=== PATIENT | female | born 1995 | race African-American/Black ===

== ENCOUNTER 2017-01-17 15:12 | Emergency (ER) | payer OTHER ==
[~2017-01-17] VITALS: Ht 152.4 cm; Wt 53.5 kg
[~2017-01-17 15:12] MED LIST: AZITHROMYCIN 2250 MG PO; DELTASONE20 MG PO; DULERA 100 MCG/13 GM INH; VITAFOL-OB+DHA1 EACH PO
[2017-01-17 16:08] LABS: ABSOLUTE NEUTROPHILS 4.7 thou/uL (1.4-8.2); BASOPHILS 0.9 % (0.0-2.0); EOSINOPHILS 5.1 % (0.0-3.0); HEMATOCRIT 34.8 % (37.0-47.0); HEMOGLOBIN 11.8 gm/dL (12.0-15.0); LYMPHOCYTES 28.2 % (24.0-44.0); MCH 30.8 pg (26.0-34.0); MCV 90.7 fL (80.0-100.0); MONOCYTES 6.6 % (1.0-8.0); PLATELET COUNT 235 thou/uL (150-400); POLYS 59.2 % (36.0-66.0); RBC 3.84 mil/uL (4.20-5.00); RDW 13.8 % (10.5-14.5)
[2017-01-17 16:09] LABS: MANUAL DIFF NO
[2017-01-17 17:09] VITALS: BP 110/72
== END 2017-01-17 17:12 | disposition home or self-care (01) ==
LOC: ER 15:12
PROVIDERS: Nurse Practitioner
DX: O26.892 Other specified pregnancy related conditions, second trimester (principal); J45.909 Unspecified asthma, uncomplicated; Z3A.17 17 weeks gestation of pregnancy

== ENCOUNTER 2017-09-15 00:28 | Emergency (ER) | payer OTHER ==
[~2017-09-15] VITALS: Ht 152.4 cm; Wt 50.8 kg
[2017-09-15 00:50] LABS: URINE BILIRUBIN 1+ (Negative); URINE BLOOD 2+ (Negative); URINE CLARITY CLOUDY; URINE COLOR YELLOW; URINE GLUCOSE-RANDOM* NEGATIVE (Negative); URINE KETONES TRACE (Negative); URINE NITRITE-REFLEX NEGATIVE (Negative); URINE PROTEIN (DIPSTICK) 1+ (Negative); URINE SPECIFIC GRAVITY >= 1.030 (1.005-1.035); URINE UROBILINOGEN 0.2 E.U./dl (0.2-1.0)
[2017-09-15 01:05] LABS: ICTOTEST (BILI CONFIRMATORY) Positive (Negative); URINE LEUKOCYTES-REFLEX 2+ (Negative)
[2017-09-15 01:08] LABS: CALCIUM OXALATE 0-3 Few /LPF (None Seen); CASTS None Seen /LPF (None Seen); CRYSTALS None Seen /LPF (None Seen); MUCUS 4-6 Moderate strn/LPF (None Seen); SQUAMOUS >10 Many /LPF (0-3)
[2017-09-15] MEDS ORDERED: KEFLEX500 M1 PO (01:43)
[2017-09-15 02:02] VITALS: BP 112/68
[2017-09-16 14:11] LABS: NEISSERIA GONORRHEA-PCR Negative (Negative)
== END 2017-09-15 02:02 | disposition home or self-care (01) ==
LOC: ER 00:28
PROVIDERS: Emergency Medicine
DX: Z11.3 Encounter for screening for infections with a predominantly sexual mode of transmission (principal); J45.909 Unspecified asthma, uncomplicated

== ENCOUNTER 2018-03-23 21:31 | Emergency (ER) | payer OTHER ==
[~2018-03-23] VITALS: Ht 152.4 cm; Wt 50.8 kg
[~2018-03-23 21:31] MED LIST changes: +KEFLEX500 M1 PO
[2018-03-23 21:53] LABS: URINE BILIRUBIN NEGATIVE (Negative); URINE BLOOD NEGATIVE (Negative); URINE CLARITY CLEAR; URINE COLOR YELLOW; URINE GLUCOSE-RANDOM* NEGATIVE (Negative); URINE KETONES NEGATIVE (Negative); URINE LEUKOCYTES-REFLEX NEGATIVE (Negative); URINE NITRITE-REFLEX NEGATIVE (Negative); URINE PROTEIN (DIPSTICK) NEGATIVE (Negative); URINE SPECIFIC GRAVITY 1.025 (1.005-1.035); URINE UROBILINOGEN 0.2 E.U./dl (0.2-1.0)
[2018-03-23 22:42] VITALS: BP 140/87
== END 2018-03-23 22:43 | disposition home or self-care (01) ==
LOC: ER 21:31
PROVIDERS: Physician Assistant
DX: N89.8 Other specified noninflammatory disorders of vagina (principal); R30.0 Dysuria; J45.909 Unspecified asthma, uncomplicated

== ENCOUNTER 2018-09-19 08:24 | Emergency (ER) | payer OTHER ==
[~2018-09-19] VITALS: Ht 157.5 cm; Wt 46.3 kg
[2018-09-19] MEDS ORDERED: PREDNISONE 20 M20 MG PO (10:51)
[2018-09-19] MEDS ORDERED: ALBUTEROL2.5 MG/31 INH (10:51)
[2018-09-19] MEDS ORDERED: VENTOLIN HFA 1818 GM INH (10:51)
[2018-09-19 10:57] VITALS: BP 125/75
== END 2018-09-19 10:57 | disposition home or self-care (01) ==
LOC: ER 08:24
DX: J45.901 Unspecified asthma with (acute) exacerbation (principal)

== ENCOUNTER 2018-10-26 21:46 | Emergency (ER) | payer OTHER ==
[~2018-10-26] VITALS: Ht 152.4 cm; Wt 49.0 kg
[~2018-10-26 21:46] MED LIST changes: +ALBUTEROL2.5 MG/31 INH; +PREDNISONE 20 M20 MG PO; +VENTOLIN HFA 1818 GM INH
[2018-10-26] MEDS ORDERED: KEFLEX500 M1 PO (23:02)
[2018-10-26 23:35] VITALS: BP 146/97
== END 2018-10-26 23:50 | disposition home or self-care (01) ==
LOC: ER 21:46
DX: L08.89 Other specified local infections of the skin and subcutaneous tissue (principal); J45.909 Unspecified asthma, uncomplicated

== ENCOUNTER 2020-08-27 22:22 | Emergency (ER) | payer OTHER ==
[~2020-08-27] VITALS: Ht 154.9 cm; Wt 59.0 kg
[2020-08-27 22:26] VITALS: BP 125/75
== END 2020-08-27 23:18 | disposition home or self-care (01) ==
LOC: ER 22:22
DX: S10.83XA Contusion of other specified part of neck, initial encounter (principal); H11.32 Conjunctival hemorrhage, left eye; J45.909 Unspecified asthma, uncomplicated; Y04.0XXA Assault by unarmed brawl or fight, initial encounter; Y93.89 Activity, other specified; Y92.89 Other specified places as the place of occurrence of the external cause; Y99.9 Unspecified external cause status